=== PATIENT | female | born 1995 | race Two or more races ===

== ENCOUNTER 2020-05-04 11:59 | Inpatient (IN) | payer OTHER ==
[~2020-05-04] VITALS: Ht 180.3 cm; Wt 125.0 kg
[2020-05-04 12:06] VITALS: BP 140/76
[2020-05-04] MEDS ORDERED: D5%-LACTATED RINGERS 1,000 ML IV SCH (15:00)
[2020-05-04] MEDS ORDERED: SODIUM CITRATE/CITRIC ACID 30 ML UDC PO PRN (15:00)
[2020-05-04] MEDS ORDERED: TERBUTALINE 1 MG/ML, 1ML IVPush PRN (15:00)
[2020-05-04] MEDS ORDERED: METOCLOPRAMIDE 5 MG/ML, 2ML IVPush PRN (15:00)
[2020-05-04] MEDS ORDERED: FENTANYL PF 100 MCG/2ML IV PRN (15:00)
[2020-05-04] MEDS ORDERED: TERBUTALINE 1 MG/ML, 1ML SQ PRN (15:00)
[2020-05-04] MEDS ORDERED: SODIUM CHLORIDE FLUSH 10ML SYR IVF PRN (15:00)
[2020-05-04] MEDS ORDERED: MISOPROSTOL 25 MCG TABLET ONE ×3 (15:08→19:43)
[2020-05-04 15:30] LABS: BASOPHILS % (AUTO) 0 % (0-1); EOSINOPHILS % (AUTO) 1 % (1-7); LYMPHOCYTES % (AUTO) 12 % (22-44); MEAN PLATELET VOLUME 9.6 fL (7.4-10.4); MONOCYTES % (AUTO) 7 % (2-9); NEUTROPHILS % (AUTO) 80 % (42-75); PLATELET COUNT 257 x10^3/uL (130-400); RED BLOOD COUNT 4.75 x10^6/uL (3.82-5.3); RED CELL DISTRIBUTION WIDTH 14.6 % (9.6-15.2)
[2020-05-04 15:31] LABS: MD NO
[2020-05-04] MEDS: MISOPROSTOL 25 MCG TABLET VG PRN ×2 (15:40→19:38)
[2020-05-04] MEDS ORDERED: NEWBORN KIT ONE (16:05)
[2020-05-04] MEDS ORDERED: OXYTOCIN 30U/ 0.9% NaCL 500ML 500 ML ONE (16:05)
[2020-05-04] MEDS: LACTATED RINGERS 1,000 ML IV SCH (23:00)
[2020-05-05] MEDS ORDERED: FENTANYL PF 100 MCG/2ML ONE ×3 (00:26→03:26)
[2020-05-05] MEDS: FENTANYL PF 100 MCG/2ML IVPush PRN ×3 (00:28→03:30)
[2020-05-05] MEDS ORDERED: ONDANSETRON 2MG/ML, 2ML ONE ×2 (01:58→11:35)
[2020-05-05] MEDS: ONDANSETRON 2MG/ML, 2ML IVPush PRN ×2 (02:03→11:39)
[2020-05-05] MEDS: LACTATED RINGERS 1,000 ML IV SCH ×2 (06:57→08:00)
[2020-05-05] MEDS ORDERED: FENTANYL/BUPIV./NS/PF 250 ML EPIDCONT ONE (08:04)
[2020-05-05] MEDS ORDERED: LACTATED RINGERS 1,000 ML IV SCH (09:00)
[2020-05-05] MEDS ORDERED: LACTATED RINGERS 1,000 ML IVBOLUS PRN (09:00)
[2020-05-05] MEDS ORDERED: FENTANYL/BUPIV./NS/PF 250 ML EPIDCONT SCH (09:00)
[2020-05-05] MEDS ORDERED: EPHEDRINE 50 MG/ML, 1ML IVPush PRN (09:00)
[2020-05-05] MEDS ORDERED: NALOXONE 0.4 MG/ML, 1ML IVPush PRN (09:00)
[2020-05-05] MEDS ORDERED: OXYTOCIN 30U/ 0.9% NaCL 500ML 500 ML IV PRN (10:00)
[2020-05-05] MEDS ORDERED: TERBUTALINE 1 MG/ML, 1ML ONE (18:29)
[2020-05-05] MEDS ORDERED: MISOPROSTOL 200 MCG TABLET PR PRN (20:00)
[2020-05-05] MEDS ORDERED: ACETAMINOPHEN 325 MG TABLET PO PRN ×2 (20:00)
[2020-05-05] MEDS ORDERED: METHYLERGONOVINE 0.2 MG/ML IM PRN (20:00)
[2020-05-05] MEDS ORDERED: SIMETHICONE 80 MG CHEW TAB PO PRN (20:00)
[2020-05-05] MEDS ORDERED: CARBOPROST TROMETHAMINE 250 MCG/ML, 1ML IM PRN (20:00)
[2020-05-05] MEDS ORDERED: RHOGAM FROM BLOOD BANK 1 NOTE EA IM/IV ONE (20:00)
[2020-05-05] MEDS ORDERED: OXYcodone/APAP 5/325MG TABLET PO PRN (20:00)
[2020-05-05] MEDS ORDERED: DIPH,PERTUSS(ACELL),TET VAC/PF NC IM-VACC PRN (20:00)
[2020-05-05] MEDS: OXYTOCIN 30U/ 0.9% NaCL 500ML 500 ML IV SCH (21:10)
[2020-05-05 21:15] VITALS: BP 112/73
[2020-05-06 01:30] VITALS: BP 125/83
[2020-05-06] MEDS: IBUPROFEN 600 MG TABLET PO PRN ×4 (01:33→22:13)
[2020-05-06 05:50] VITALS: BP 119/79
[2020-05-06 05:51] LABS: BASOPHILS % (AUTO) 0 % (0-1); EOSINOPHILS % (AUTO) 1 % (1-7); LYMPHOCYTES % (AUTO) 11 % (22-44); MEAN CORPUSCULAR HEMOGLOBIN 29.3 pg (27.0-34.8); MEAN CORPUSCULAR HGB CONC 33.7 g/dL (32.4-35.8); MEAN PLATELET VOLUME 9.6 fL (7.4-10.4); MONOCYTES % (AUTO) 6 % (2-9); NEUTROPHILS % (AUTO) 82 % (42-75); PLATELET COUNT 203 x10^3/uL (130-400); RED CELL DISTRIBUTION WIDTH 14.5 % (9.6-15.2)
[2020-05-06 06:00] LABS: MD NO
[2020-05-06] MEDS: OXYTOCIN 30U/ 0.9% NaCL 500ML 500 ML IV SCH ×2 (06:00→16:00)
[2020-05-06] MEDS: DOCUSATE 100 MG CAPSULE PO PRN ×2 (07:35→22:13)
[2020-05-06] MEDS: PRENATAL VIT/IRON/FA 1 EACH TABLET PO SCH (07:35)
[2020-05-06 08:00] VITALS: BP 123/82
[2020-05-06 13:00] VITALS: BP 121/79
[2020-05-06 17:00] VITALS: BP 125/82
[2020-05-06 21:00] VITALS: BP 120/86
[2020-05-06] MEDS: OXYcodone/APAP 5/325MG TABLET PO PRN (22:14)
[2020-05-07] MEDS: OXYTOCIN 30U/ 0.9% NaCL 500ML 500 ML IV SCH (02:00)
[2020-05-07] MEDS: IBUPROFEN 600 MG TABLET PO PRN (04:24)
[2020-05-07] MEDS: OXYcodone/APAP 5/325MG TABLET PO PRN ×2 (04:24→08:46)
[2020-05-07] MEDS ORDERED: PREN1TAB98 PO (07:27)
[2020-05-07] MEDS ORDERED: IBUP-1222 PO (07:28)
[2020-05-07 07:51] VITALS: BP 133/84
[2020-05-07] MEDS: PRENATAL VIT/IRON/FA 1 EACH TABLET PO SCH (08:45)
[2020-05-07] MEDS: DOCUSATE 100 MG CAPSULE PO PRN (08:46)
== END 2020-05-07 10:21 | disposition home or self-care (01) | DRG 807 ==
LOC: LDOP 11:59 → LDIP 15:27 → 2NW 05-05 21:00
PROVIDERS: ADMIT Obstetrics & Gynecology; ATTEND Obstetrics & Gynecology
PROC: 3E0R3BZ Introduction of Anesthetic Agent into Spinal Canal, Percutaneous Approach (ICD-10-PCS; 2020-05-04)
PROC: 00HU33Z Insertion of Infusion Device into Spinal Canal, Percutaneous Approach (ICD-10-PCS; 2020-05-04)
PROC: 10E0XZZ Delivery of Products of Conception, External Approach (ICD-10-PCS; principal; 2020-05-05)
PROC: 3E033VJ Introduction of Other Hormone into Peripheral Vein, Percutaneous Approach (ICD-10-PCS; 2020-05-05)
DX: O76 Abnormality in fetal heart rate and rhythm complicating labor and delivery (principal); Z37.0 Single live birth; J45.909 Unspecified asthma, uncomplicated; O36.8130 Decreased fetal movements, third trimester, not applicable or unspecified; O99.52 Diseases of the respiratory system complicating childbirth; Z3A.38 38 weeks gestation of pregnancy; Z23 Encounter for immunization; Z20.822 Contact with and (suspected) exposure to COVID-19
CPT/HCPCS: 36415; 76815; 76819; 85025; 86592; 86850; 86900; 87635; G0378; J2405; J3010; J2590; J7120; J7121